=== PATIENT | male | born 1995 | race African-American/Black ===

== ENCOUNTER 2024-05-06 16:01 | Emergency (ER) | payer MEDICAID ==
[~2024-05-06] VITALS: Ht 180.3 cm; Wt 136.0 kg
[2024-05-06 16:04] VITALS: TEMP 98.7; O2SAT 98
[2024-05-06] MEDS: HYDROCODONE/ACETAMINOPHEN 5/325MG TABLET PO STA (17:18)
[2024-05-06] MEDS ORDERED: CYCL5TAB PO (19:18)
[2024-05-06] MEDS ORDERED: NAPR-681 PO (19:18)
[2024-05-06 19:37] VITALS: BP 116/78; PULSE 66; RESP 16; O2SAT 99
== END 2024-05-06 19:38 | disposition home or self-care (01) ==
LOC: ER 16:01
DX: S39.012A Strain of muscle, fascia and tendon of lower back, initial encounter (principal); S16.1XXA Strain of muscle, fascia and tendon at neck level, initial encounter; S00.83XA Contusion of other part of head, initial encounter; V43.52XA Car driver injured in collision with other type car in traffic accident, initial encounter; Y93.89 Activity, other specified; Y92.89 Other specified places as the place of occurrence of the external cause; Y99.8 Other external cause status
CPT/HCPCS: 70486; 71045; 72100; 99284